=== PATIENT | male | born 1930 | race Native Hawaiian/Other Pacific Islander ===

== ENCOUNTER 2016-05-15 14:14 | Outpatient (CLI) | payer OTHER ==
[~2016-05-15 14:14] MED LIST: ADVIL200 M1 OR; ALEVE ARTHRITI220 MG OR; ASA LO-DOSE81 MG OR; CELEBREX200 MG PO; METOPROLOL25 M1 OR; MOBIC15 MG PO; PLAVIX75 MG PO; PRAVACHOL20 MG PO
[2016-05-15 14:41] LABS: POTASSIUM 3.8 mmol/L (3.6-5.2)
[2016-05-15 14:57] LABS: PLATELET COUNT 204 K/uL (142-355)
== END 2016-05-15 19:56 | disposition home or self-care (01) ==
LOC: LAB 14:14
PROVIDERS: Internal Medicine Infectious Disease
DX: L03.113 Cellulitis of right upper limb (principal); T84.59XD Infection and inflammatory reaction due to other internal joint prosthesis, subsequent encounter; R78.81 Bacteremia
CPT/HCPCS: 80053; 85027; 85651; 86140

== ENCOUNTER 2016-05-21 11:11 | Outpatient (CLI) | payer OTHER ==
[2016-05-21 11:21] LABS: PLATELET COUNT 220 K/uL (142-355)
[2016-05-21 11:31] LABS: POTASSIUM 3.5 mmol/L (3.6-5.2)
== END 2016-05-21 19:22 | disposition home or self-care (01) ==
LOC: LAB 11:11
PROVIDERS: Internal Medicine Infectious Disease
DX: T84.59XD Infection and inflammatory reaction due to other internal joint prosthesis, subsequent encounter (principal); L03.113 Cellulitis of right upper limb; R78.81 Bacteremia
CPT/HCPCS: 80053; 85027; 85651; 86140

== ENCOUNTER 2017-02-01 11:07 | Outpatient (CLI) | payer OTHER | END 2017-02-01 19:16 | disposition home or self-care (01) | LOC: LABW 11:07 | DX: B35.6 Tinea cruris (principal) | CPT/HCPCS: 36415; 80076 ==

== ENCOUNTER 2017-07-26 10:45 | Outpatient (CLI) | payer OTHER ==
[2017-07-26 10:58] LABS: PLATELET COUNT 174 K/uL (142-355)
[2017-07-26 11:12] LABS: POTASSIUM 4.3 mmol/L (3.6-5.2)
== END 2017-07-26 18:00 | disposition home or self-care (01) ==
LOC: RESP 10:45 → LABW 10:45 → RESP 18:00
PROVIDERS: Physician Assistant
DX: I25.10 Atherosclerotic heart disease of native coronary artery without angina pectoris (principal); I10 Essential (primary) hypertension
CPT/HCPCS: 36415; 80053; 85027; 93005